=== PATIENT | male | born 1990 | race Caucasian/White ===

== ENCOUNTER 2018-09-03 19:42 | Emergency (ER) | payer OTHER, MEDICAID ==
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
[2018-09-03 21:53] VITALS: BP 129/79
== END 2018-09-03 21:52 | disposition home or self-care (01) ==
LOC: ER 19:42
DX: S63.501A Unspecified sprain of right wrist, initial encounter (principal); V43.53XA Car driver injured in collision with pick-up truck in traffic accident, initial encounter
CPT/HCPCS: 99283; 73110; L3908